=== PATIENT | female | born 1965 | race Caucasian/White ===

== ENCOUNTER 2016-09-07 03:48 | Emergency (ER) | payer OTHER ==
--- NOTE | ~2016-09-07 | CR72 ---
[facility] A Service of [facility] & [facility] RADIOLOGY TEXT RESULTS PATIENT: AUBREE MASSEY LOCATION: SED : 61 UNIT #: [id number] AGE: [address]: Tucker Armando MD SEX: F ORDER DR: [id number] [address] [id number] E MR#: [id number] Acc #: [id number] NAME: AUBREE MASSEY : 1965 SEX: F STUDY DATE/TIME: 09/07/2016 3:02 UNIT: SED ROOM: STUDY DESCRIPTION: CR Chest Single View Portable Attending Physician: Tucker Armando M.D. Ordering Physician: Tucker Armando M.D. MEDICAL IMAGING REPORT This report is preliminary unless electronic signature is present. EXAM Portable chest INDICATION Shortness of air. Cough for the past 6 days. PROCEDURE Frontal view chest COMPARISON None FINDINGS Heart size within normal limits. There is ill-defined opacity in the lateral right lung base. No pneumothorax or pleural fluid. IMPRESSION Ill-defined opacity lateral right lung base suspicious for pneumonia. Otherwise the lungs are clear. Dictated by... Karel Beckett M.D. THIS IS AN ELECTRONICALLY VERIFIED REPORT Karel Beckett M.D. at 09/07/2016 9:56 PM Cris TD: 09/07/2016 08:19 JOB #: [id number] MEDICAL IMAGING REPORT Page 1 of 1
[2016-09-07 03:21] LABS: POC - CKMB 2.3 ng/mL (0.0-7.9)
[2016-09-07 03:22] LABS: POC - MYOGLOBIN 75.2 ng/mL (0.0-169.0); POC - TROPONIN <0.05 ng/mL (<=0.05)
[~2016-09-07 03:48] MED LIST: NO MEDICATIONS
== END 2016-09-07 04:15 | disposition home or self-care (01) ==
LOC: SED 03:48
PROVIDERS: Emergency Medicine
DX: J18.9 Pneumonia, unspecified organism (principal); J44.9 Chronic obstructive pulmonary disease, unspecified; F17.200 Nicotine dependence, unspecified, uncomplicated
CPT/HCPCS: 36415; 71010; 82553; 83874; 84484; 94640; 94644; 96361; 96365; 96374; 96375; 99284; J0696; J1885; J2930